=== PATIENT | male | born 1980 | race Caucasian/White ===

== ENCOUNTER 2016-06-18 05:17 | Emergency (ER) | payer MEDICAID, OTHER ==
[~2016-06-18] VITALS: Ht 177.8 cm; Wt 111.0 kg
[2016-06-18 05:52] VITALS: BP 144/79; PULSE 103; RESP 14; TEMP 97.8; O2SAT 95
[2016-06-18] MEDS ORDERED: VENL25TA PO (05:59)
[2016-06-18] MEDS ORDERED: LISI2.5T3 PO (05:59)
[2016-06-18] MEDS ORDERED: METF500T PO (05:59)
--- NOTE | 2016-06-18 06:01 | PD ---
HPI Chief Complaint: Suicide Ideation/Attempt Time Seen by Provider: 05:22 Travel History International Travel<30 days: No Contact w/Intl Traveler<30days: No Traveled to known affect area: No History of Present Illness HPI 36-year-old male here as a Deirdre act after suicide attempt. Patient felt that he has been increasingly depressed since being noncompliant with his antidepressants. He's been off them for several weeks. Patient states that tonight he felt suicidal and wrapped his cell phone charging cord around his neck. He did not tie this to anything but rather left it loosely wrapped around his neck. He then put a sheet over his head and was laying in bed when his girlfriend found him. Please call the patient Deirdre acted and brought here. Patient states he feels feels suicidal but doesn't have a plan at this time. Admits to drinking alcohol and smoking marijuana tonight. PFSH Past Medical History Cardiovascular Problems: Yes (HTN) Diabetes: Yes Patient Takes Glucophage: Yes Hypertension: Yes Past Surgical History Surgical History: No Previous Surgery Social History Alcohol Use: Yes Tobacco Use: No Substance Use: Yes (marijuana) Allergies-Medications (Allergen,Severity, Reaction): Coded Allergies: No Known Allergies (Unverified , 06/18/16) Reported Meds & Prescriptions Reported Meds & Active Scripts Active Reported Metformin (Metformin HCl) 500 Mg Tab 500 Mg PO BIDPC With meals Lisinopril 2.5 Mg Tab 2.5 Mg PO DAILY Effexor (Venlafaxine HCl) 25 Mg Tab 25 Mg PO Q12H Review of Systems Except as stated in HPI: all other systems reviewed are Neg Physical Exam Narrative GENERAL: Well-appearing male in no acute distress SKIN: Warm and dry. HEAD: Atraumatic. Normocephalic. EYES:No scleral icterus. No injection or drainage. ENT: Mucous membranes pink and moist. NECK: Trachea midline. No JVD. No erythema, lines and ligature CARDIOVASCULAR: Regular rate and rhythm. RESPIRATORY: No accessory muscle use. GASTROINTESTINAL: Obese MUSCULOSKELETAL: Normal gait NEUROLOGICAL: Awake and alert. Normal speech. PSYCHIATRIC: Depressed with suicidal ideation but no plan at this time. Denies delusions, hallucinations, homicidal ideation Data Data Last Documented VS Vital Signs Date Time Temp Pulse Resp B/P Pulse Ox O2 Delivery O2 Flow Rate FiO2 06/18/16 05:58 103 14 95 Room Air 06/18/16 05:52 97.8 144/79 Orders Complete Blood Count With Diff (06/18/16 05:22) Comprehensive Metabolic Panel (06/18/16 05:22) Drug Screen, Random Urine (06/18/16 05:22) Psych Screen (06/18/16 05:22) Alcohol (Ethanol) (06/18/16 05:35) Labs Laboratory Tests Test 06/18/16 06:06 White Blood Count 10.1 TH/MM3 Red Blood Count 5.52 MIL/MM3 Hemoglobin 18.0 GM/DL Hematocrit 50.6 % Mean Corpuscular Volume 91.6 FL Mean Corpuscular Hemoglobin 32.7 PG Mean Corpuscular Hemoglobin 35.6 % Concent Red Cell Distribution Width 12.5 % Platelet Count 255 TH/MM3 Mean Platelet Volume 8.5 FL Neutrophils (%) (Auto) 48.6 % Lymphocytes (%) (Auto) 40.1 % Monocytes (%) (Auto) 8.3 % Eosinophils (%) (Auto) 2.1 % Basophils (%) (Auto) 0.9 % Neutrophils # (Auto) 4.9 TH/MM3 Lymphocytes # (Auto) 4.1 TH/MM3 Monocytes # (Auto) 0.8 TH/MM3 Eosinophils # (Auto) 0.2 TH/MM3 Basophils # (Auto) 0.1 TH/MM3 CBC Comment DIFF FINAL Differential Comment Total Bilirubin 0.4 MG/DL Alkaline Phosphatase 55 U/L Total Protein 8.2 GM/DL MDM Medical Decision Making Medical Screen Exam Complete: Yes Emergency Medical Condition: Yes Medical Record Reviewed: Yes Differential Diagnosis 36-year-old male here as a suicide attempt. Differential includes depression, substance induced mood disorder, bipolar disorder, adjustment reaction. Narrative Course Patient placed on monitor, IV established and blood obtained. CBC, CMP, blood alcohol, and urine drugs remains pending at the time this dictation. Signed out to oncoming provider waiting results of same for medical clearance and psychiatric evaluation. Brenda Jerome MD Jun 18, 2016 06:01 Brenad Jerome MD Jun 18, 2016 06:01
[2016-06-18 06:16] LABS: AUTOMATED NEUTROPHIL # 4.9 TH/MM3 (1.8-7.7); BASOPHIL # 0.1 TH/MM3 (0-0.2); BASOPHIL % 0.9 % (0.0-2.0); EOSINOPHIL # 0.2 TH/MM3 (0-0.4); EOSINOPHIL % 2.1 % (0.0-4.0); HEMATOCRIT 50.6 % (39.0-51.0); HEMO FLAGS DIFF FINAL; LYMPH % 40.1 % (9.0-44.0); LYMPHOCYTE # 4.1 TH/MM3 (1.0-4.8); MEAN CELL VOLUME 91.6 FL (80.0-100.0); MEAN CORPUSCULAR HEMOGLOBIN 32.7 PG (27.0-34.0); MEAN CORPUSCULAR HGB CONC 35.6 % (32.0-36.0); MONO % 8.3 % (0.0-8.0); NEUT % 48.6 % (16.0-70.0); PLATELET COUNT 255 TH/MM3 (150-450); RED BLOOD COUNT 5.52 MIL/MM3 (4.50-5.90); RED CELL DISTRIBUTION WIDTH 12.5 % (11.6-17.2); WHITE BLOOD COUNT 10.1 TH/MM3 (4.0-11.0)
[2016-06-18 06:33] LABS: ALKALINE PHOSPHATASE 55 U/L (45-117); TOTAL BILIRUBIN ADULT 0.4 MG/DL (0.2-1.0)
[2016-06-18 07:05] LABS: AMPHETAMINE, URINE NEG (NEG); BARBITURATES, URINE NEG (NEG); COCAINE, URINE NEG (NEG)
[2016-06-18 07:15] LABS: ALT (GPT) 55 U/L (12-78); ANION GAP 11 MEQ/L (5-15); AST (GOT) 43 U/L (15-37); BICARBONATE 21.7 MEQ/L (21.0-32.0); BLOOD UREA NITROGEN 11 MG/DL (7-18); CHLORIDE 103 MEQ/L (98-107); GLOMERULAR FILTRATION RATE 73 ML/MIN (>89); SODIUM (NA) 136 MEQ/L (136-145)
[2016-06-18 07:17] LABS: POTASSIUM 4.5 MEQ/L (3.5-5.1)
[2016-06-18 08:48] VITALS: BP 161/99; PULSE 120; RESP 22; TEMP 99; O2SAT 98
[2016-06-18 10:59] VITALS: BP 121/76; PULSE 80; RESP 18; O2SAT 98
[2016-06-18 14:05] VITALS: BP 140/94; PULSE 77; RESP 18
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
== END 2016-06-18 16:19 | disposition home or self-care (01) ==
LOC: EDBD → NEPE 05:17 → NEPJ 16:19
DX: F31.9 Bipolar disorder, unspecified (principal)
CPT/HCPCS: 80053; 80307; 80320; 85025; 99283